=== PATIENT | female | born 1970 | race Caucasian/White ===

== ENCOUNTER 2022-06-12 07:30 | Day surgery (SDC) | payer OTHER, SELFPAY ==
[2022-06-12] VITALS (15 sets, daily range): BP systolic 105–154; BP diastolic 56–96; PULSE 62–84; RESP 10–20; TEMP 36.2–37.1; O2SAT 92–100; BMI 35.2
[2022-06-12] MEDS: Lactated Ringers 1,000 ML 100 ML IV (08:25)
--- NOTE | 2022-06-12 09:22 | ANES.PREOP_ITS ---
General Info Date of Service Date Performed: 06/12/22 Height: 5 ft 1 in Weight: 84.7 kg Body Mass Index (BMI): 35.2 Surgical Procedure: Operation Date: 06/12/22 10:10 Proposed Procedure Side Surgeon p Tonsillectomy & Possible Adenoidectomy Shai Muhammad MD Meds Allergies and Home Medications Allergies Allergy/AdvReac Type Severity Reaction Status Date / Time No Known Allergies Allergy Verified 06/12/22 08:04 Home Medication Medication Instructions Recorded benzonatate 200 mg capsule 200 mg PO BID PRN 02/16/22 omeprazole 20 mg capsule,delayed 20 mg PO DAILY 02/16/22 release Current Visit Medications: Current Medications Generic Name Dose Route Start Last Admin Trade Name Freq PRN Reason Stop Dose Admin Ringer's Solution 1,000 mls @ 100 mls/hr 06/12/22 06:00 06/12/22 08:25 IV 07/09/22 23:59 100 mls/hr INFUSION TERI Administration Cefazolin Sodium/Dextrose 2 gm in 50 mls @ 100 mls/hr 06/12/22 06:00 Ancef Duplex IVPB 06/12/22 16:00 PREOP TERI Tranexamic Acid 1,000 mg/ 60 mls @ 360 mls/hr 06/12/22 06:00 Sodium Chloride IVPB 06/12/22 16:00 DIRECTED TERI IV Miscellaneous Supplies 1 each 06/12/22 06:00 Iv Access IV 07/09/22 23:59 DIRECTED TERI Sodium Chloride 0 ml 06/12/22 06:00 Normal Saline Flush 10 Ml Syr IV 07/09/22 23:59 PRN PRN Sodium Chloride 0 ml 06/12/22 06:00 Normal Saline 10 Ml Vial IJ 07/09/22 23:59 DIRECTED PRN Sterile Water 0 ml 06/12/22 06:00 Water,Injection,Sterile 10 Ml Vial IJ 07/09/22 23:59 DIRECTED PRN PFSH Active Problems Active Problems: Problem Status Onset Code Chronic tonsillitis J35.01 Tonsillar hypertrophy J35.1 Cough in adult R05.9 GERD (gastroesophageal reflux disease) K21.9 Medical History Medical History Cough Fibroid tumor Pigmented villonodular synovitis of knee Left Surgical History Surgical History History of appendectomy History of bilateral breast reduction surgery History of History of cholecystectomy History of hysterectomy for fibroid tumor - partial History of left knee surgery Tobacco Smoking/Tobacco Use Status: Never Alcohol Alcohol Intake: current Alcohol intake frequency: holidays/special occasions only Substance Use Substance use: Never Substance use type: does not use Vital Signs and Lab Results Vital Signs Most Recent Vital Signs in EMR: Most Recent Vital Signs Temp Pulse Resp BP Pulse Ox 37.1 C 66 16 123/83 97 06/12/22 08:04 06/12/22 08:04 06/12/22 08:04 06/12/22 08:04 06/12/22 08:04 Lab Results Blood Type / Crossmatch: No Data to Display Complete Blood Count: No Data to Display Complete Metabolic Panel: No Data to Display Liver Function Panel: No Data to Display Coagulation Panel: No Data to Display Cardiac Panel: No Data to Display Arterial Blood Gas: No Data to Display Venous Blood Gas: No Data to Display Pancreas Panel: No Data to Display Thyroid Panel: No Data to Display Infectious Disease: No Data to Display Blood Cultures: No Data to Display Toxicology Panel: 2 No Data to Display Panel: No Data to Display Anesthesia Assessment and Plan Anesthesia History Personal History: PONV Family History: No Family History of Anesthesia Complications Exercise Tolerance Exercise Tolerance: Metabolic Equivalents>4 Pertinent Negatives Pertinent Negatives: No Symptoms of GERD (Oral medication taken this am, no symptoms currently), No Major Cardiovascular Symptoms or Complaints and No Major Pulmonary Symptoms or Complaints Cardiac & Pulmonary Exam Cardiac Exam: Normal S1/S2 Heart Sounds Pulmonary Exam: Clear Bilateral Breath Sounds Implantable Cardiac Device Does patient have a Pacemaker or an ICD?: No Airway Exam Known Difficult Airway: No Mallampati Class: 1 Mouth Opening: Normal (> 3cm) Thyromental Distance: Greater than 3 cm Neck Range of Motion: Full ROM Neck Circumference: Normal Teeth Condition: Normal Dentition ASA Classification ASA Score: ASA 2 Emergency Case?: No NPO Status NPO Status: NPO Clears >2 hours, Solids >8 hours Status Status: History of Hysterectomy Anesthesia Plan Resuscitation Status: Full Code Anesthesia Technique: General Anesthesia Airway Planned: Endotracheal Tube Monitors Used: Standard Monitors
[2022-06-12] MEDS: ceFAZolin 2 GM/50 ML BAG IVPB (09:52)
[2022-06-12] MEDS: Bupivacaine 0.5% Pres-Free W/EPI 10 ML VIAL (10:04)
--- NOTE | 2022-06-12 10:14 | TONSIL_PTH ---
PATIENT: Cleve Cummings LOC: [facility] U#:[id number] AGE/SX: 52/F ROOM: RE06/12/[address]: Shai Muhammad MD : 1970 BED: DIS: 06/12/2022 SPEC #: [id number] RECD: 06/12/22 12:54 STATUS: SOUT REQ #: [id number] JOSE: 06/12/22 10:[address]: Shai Muhammad DEPT: Surgical Specimen RECD BY: Aracelis Mc ENTERED: 06/12/22 12:55 SP TYPE: TONSIL OTHR DR: Lion Bowen Tissues: 1 - TONSIL AGE 17 & OVER 2 - TONSIL AGE 17 & OVER Procedures: GROSS AND MICRO LEVEL 3 Comments: [id number]
--- NOTE | 2022-06-12 10:28 | PDOC.DSDIS_ITS ---
Date of service: 06/12/22 Time of Service: 10:28 Discharge Plan Disposition Patient Disposition: HOME Condition: Good Discharge Details Reason For Visit: Tonsillectomy Attending Provider: Shai Muhammad Primary Care Provider: Lion Bowen [facility] and New Rx's Prescriptions: No Action omeprazole 20 mg capsule,delayed release(DR/EC) 20 mg PO DAILY benzonatate 200 mg capsule 200 mg PO BID PRN Discharge Instructions Additional Instructions: My cell phone number is [phone]. Please call with any questions or concerns. If you are unable to reach me and this is an emergency, please proceed to the emergency room Stand Alone Forms: ENT- T&A Instr. Sabina Referrals: Shai Muhammad MD [ [facility] STAFF PHYSICIAN] - (1 month, please call for appointment prior to patient's departure)
--- NOTE | 2022-06-12 10:29 | W.PM.OP ---
Date of service: 06/12/22 Time of Service: 10:30 Operative Note Operative Note DATE OF PROCEDURE: 06/12/22 PRE-OP DIAGNOSIS: Chronic tonsillitis POST-OP DIAGNOSIS: same PROCEDURE: Tonsillectomy SURGEON: Shai Muhammad ANESTHESIA TYPE: General LMA/ETT Refer to Anesthesia Record ESTIMATED BLOOD LOSS: 25 PATHOLOGY: other (Tonsils) COMPLICATIONS: None Patient was transported to: PACU Patient's condition: stable Indications: Patient with the above problems. Options were explained to the family regarding further management. She elected undergo the above procedure. Consent was filled out and signed prior to surgery. Risks of narcotics were reviewed in detail. H&P was reviewed. There have been no changes. Findings: 3+ tonsils with copious cryptic debris, adenoids atrophic, without any inflammation or debris, no Tornwaldt cyst apparent Procedure Description: After obtaining an adequate level of general endotracheal anesthesia, patient was prepped and draped in appropriate fashion and a Calin Min mouthgag carefully introduced into the oral cavity and opened to reveal a soft and hard palate which were examined revealing no evidence of an occult cleft palate. Adenoids were examined with the above findings. As such, the decision was made not to perform adenoidectomy. Each tonsil was injected in a submucosal plane around its edge using 0.5% Marcaine with 1-100,000 epinephrine. A 12 blade was then used to incise mucosa along the anterior, superior, and posterior edges of the tonsil. A Elisa elevator was used to disarticulate the tonsil from the superior tonsillar fossa and then a Mckeon blade used to strip the tonsil free from the tonsillar fossa down to the inferior pole at which point time a tonsillar snare was used to amputate the tonsil from the tonsillar fossa. Electrocautery suction tip catheter was then used to achieve relative hemostasis within the tonsillar bed. This was on a setting of 15. Once been accomplished bilaterally the Calin-Min mouthgag was relaxed and reopened revealing no further bleeding. Valsalva failed to induce any further bleeding. A Calin Min mouthgag was relaxed and removed and the patient was then awakened by anesthesia and taken the recovery room in stable condition. I was present throughout the entire case.
[2022-06-12] MEDS: fentaNYL 100 MCG/2 ML VIAL IVP ×4 (11:09→11:55)
--- NOTE | 2022-06-12 11:51 | W.ANESPOSTOP ---
Postoperative Evaluation Date, Time and Location Date Performed: 06/12/22 Time Performed: 11:51 Patient Location: PACU Vital Signs Most Recent Imported Vital Signs: Most Recent Vital Signs Temp Pulse Resp BP Pulse Ox 36.6 C 66 11 L 154/74 H 100 06/12/22 11:30 06/12/22 11:30 06/12/22 11:30 06/12/22 11:30 06/12/22 11:30 Pain Score Most Recent Pain Score: Most Recent Pain Score Pain Level 4 06/12/22 11:52 Assessment Mental Status: Awake (Alert & Oriented to Patient Baseline) Airway and Respiratory Function: Patent airway with normal (patient baseline) respiratory exam Cardiovascular Function: Hemodynamically Stable Hydration Status: Adequately Hydrated Nausea & Vomiting: No Nausea or Vomiting Pain: Pain is tolerable per patient Peripheral Nerve Block: Patient did not receive a nerve block
[2022-06-12] MEDS: Droperidol 5 MG/2 ML VIAL 0.625 MG IVP (13:25)
== END 2022-06-12 14:14 | disposition home or self-care (01) ==
PROVIDERS: PCP Family Medicine; Visit Provider Otolaryngology
PROC: (CPT 42826; principal; 2022-06-12 10:00)
DX: J35.01 Chronic tonsillitis (principal); K21.9 Gastro-esophageal reflux disease without esophagitis; R05.9 Cough, unspecified
CPT/HCPCS: 42826; 88304; J0131; J0690; J1100; J1790; J2250; J2405; J2704; J3010

== ENCOUNTER → 2023-12-05 03:02 | Outpatient (CLI) | payer OTHER, SELFPAY ==
--- NOTE | 2023-12-05 08:00 | DI.RAD_ITS ---
Exam(s) RF MODIFIED SPEECH BA SWALLOW TECHNIQUE: Modified barium swallow was performed in conjunction with speech pathology. CONTRAST MATERIAL: Multiple consistencies of oral barium contrast were administered. COMPARISON: No exams were available for comparison FINDINGS: There is no evidence of aspiration or penetration with any consistency. No significant residue in the vallecula or piriform sinuses. Barium tablet passed into the stomach without delay. Speech pathology report to follow. IMPRESSION: No evidence of aspiration or penetration. RADIATION DOSE DELIVERED: dave Downey=10.5 mGy
--- NOTE | 2023-12-05 14:26 | ST.MBS ---
Date of Service Date of service: 12/05/23 Time of Service: 14:26 Modified Barium Swallow Study Findings: INSTRUMENTAL SWALLOW EVALUATION: Modified Barium Swallow Study (MBSS/VFSS) Speech Language Pathology Report Patient referred for VFSE/MBSS from Dr. Muhammad given globus sensation and reported stasis. HPI & Patient report of function: Patient is a 53 y/o F with Junior's esophagus, severe reflux/LPR with poor tolerance of PPI's, who was referred by ENT upon evaluation given globus sensation and sensation of pharyngeal residue without sensation of esophageal impaction. No prior MBSS completed, no history of INTELLECTUAL PROPERTY LEGAL ASSISTANT services. This date, patient reports globus sensation outside of meals and difficulty swallowing a variety of textures including her own saliva - localizes sensation of stasis to hypopharynx. She reports occasional s/sx aspiration coughing with certain foods such as watermelon. She frequently wakes in the night with sensation of aspiration. PFSH All Active Problems (Updated 10/30/23 @ 06:24 by Shai Muhammad MD) Globus sensation (Acute) Barretts esophagus (Acute) Pharyngoesophageal dysphagia (Acute) Chronic tonsillitis (Acute) Tonsillar hypertrophy (Acute) Cough in adult (Acute) GERD (gastroesophageal reflux disease) (Chronic) Medical History Pain in left arm Migraine Lesion of ulnar nerve Knee joint effusion Urge incontinence of urine Subluxation of patellofemoral joint Obesity Menopause Left knee pain Inflammatory dermatosis Fibroid tumor Pigmented villonodular synovitis of knee - Left Cough Surgical History Hx of eye surgery Hx of colonoscopy History of esophagogastroduodenoscopy (EGD) Hx of tonsillectomy 06/12/2022History of hysterectomy for fibroid tumor - partialHistory of cholecystectomy History of left knee surgery History of bilateral breast reduction surgery History of History of appendectomy IMPRESSIONS: Swallow safety is preserved; swallow efficiency is preserved. Overall swallow function appears safe/WFL throughout the oral, pharyngeal, and pharyngo-esophageal phase. No penetration or aspiration was observed. Pharyngeal residue was only trace (normal finding) and limited only to valleculae. On esophageal survey there was no significant retention and no retrograde flow was observed. Patient appears to be at low risk for potential aspiration PNA due to prandial aspiration and low risk for malnutrition, low risk for dehydration. Pulmonary risk is present from reflux aspiration based on patient report. Diet modification is not indicated; non-oral nutrition is not indicated. Specialist referrals:? GI ? RECOMMENDATIONS: Diet Texture Recommendation:? IDDSI LEVEL SOLIDS 7-Regular Solids LIQUIDS 0-Thin Liquids MEDICATIONS Whole with 0-Thin Liquids Risk Management Strategies:? Behavioral reflux precautions, including upright position during + 90 mins after meals. Smaller/more frequent meals throughout the day Sleep on an incline Avoid eating meals or drinking large volumes liquids 2-3 hrs before bedtime. Control risk factors for aspiration pneumonia via (a) thorough oral hygiene & (b) maintaining physical mobility as tolerated PLAN: No further INTELLECTUAL PROPERTY LEGAL ASSISTANT services are indicated at this time. Continue to address reflux management with medical teams. ----- OBJECTIVE Videofluoroscopic Swallow Evaluation (VFSE/MBSS) was conducted in the lateral[ and [id number]] projection by Speech-Language Pathologist, in collaboration with Radiologist, to evaluate oropharyngeal swallow function. Anatomic view under fluoroscopy: Noting cervical hardware, patient endorses ACDF ~5 years ago. PO Barium Contrast Trials Oral barium water-soluble contrast was administered as follows: IDDSI Level 0 Varibar thin liquid (40% w/v) IDDSI Level 2 Varibar nectar thick/mildly thick liquid (40% w/v) IDDSI Level 4 Varibar pudding/pureed/extremely thick (40% w/v) IDDSI Level 7 Regular Solid: 1/2 jen cracker coated in 3 mL Varibar pudding 13 mm barium tablet taken with (thin) water. PHYSIOLOGIC FINDINGS Oral Phase 1 Lip Closure: 0-No labial escape 2 Tongue Control: 0- Cohesive bolus between tongue to palatal seal 3 Bolus Preparation/Mastication: 0- Timely and efficient chewing/mashing 4 Bolus Transport/Lingual Motion: 0- Brisk tongue motion 5 Oral residue: 1- Trace residue lining oral structures Location: tongue 6 Initiation of pharyngeal swallow:? 2- Bolus head at posterior laryngeal surface of epiglottis Pharyngeal Phase 7 Velar Elevation: 0- No bolus between soft palate and pharyngeal wall 8 Laryngeal Elevation:? 0- Complete superior movement of thyroid cartilage with complete approximation of arytenoids to epiglottic petiole 9 Anterior Hyoid Excursion: 0- Complete anterior movement 10 Epiglottic Movement:? 0- Complete inversion 11 Laryngeal Vestibule Closure: 0- Complete; no air/contrast in laryngeal vestibule Penetration not observed 12 Pharyngeal Stripping Wave:? 0- Present; complete 13 Pharyngeal Contraction: not observed 14 PES/UES Opening:? 0- Complete distension and complete duration; no obstruction of flow 15 Tongue Base Retraction: 1- Trace column of contrast between tongue base and posterior pharyngeal wall 16 Pharyngeal residue:? 1- Trace residue within or on pharyngeal structures Location: Valleculae Paige Pharyngeal Residue Severity Rating Scale (YPRS) (Sharon, et al, 2015) Vallecula Residue Severity I None 0% No residue II Trace 1-5% Trace coating of the mucosa III Mild 5-25% Epiglottic ligament visible IV Moderate 25-50% Epiglottic ligament covered V Severe >50% Filled to epiglottic rim] Pyriform Sinus Residue Severity I None 0% No residue II Trace 1-5% Trace coating of the mucosa III Mild 5-25% Up wall to quarter full IV Moderate 25-50% Up wall to half full V Severe >50% Filled to aryepiglottic fold Esophageal Phase 17 Esophageal Clearance Upright Position: 0-Complete clearance; esophageal coating NOTE: This study was performed for interpretation only of the oropharyngeal and pharyngoesophageal domains of swallowing. It is not intended to diagnose any other radiologic abnormalities or substitute for a formal esophagram study. Overall 8-Point Penetration-Aspiration Scale (PAS) (Donk, et al, 1996) 1 - No material enters the airway. 2 - Material enters the airway, remains above the vocal folds, and is ejected? from the airway. 3 - Material enters the airway, remains above the vocal folds, and is not? ejected from the airway. 4 - Material enters the airway, contacts the vocal folds, and is ejected from the? airway. 5 - Material enters the airway, contacts the vocal folds, and is not ejected from? the airway. 6 - Material enters the airway, passes below the vocal folds, and is ejected into? the larynx or out of the airway. 7 - Material enters the airway, passes below the vocal folds, and is not ejected? from the trachea despite effort. 8 - Material enters the airway, passes below the vocal folds, and no effort is? made to eject. Clinical Indicator(s) of Prandial/Postprandial Aspiration: N/A Thank you for allowing us to take part in this patient's care. Please feel free to contact the [facility] Speech Language Pathology Department with any questions/concerns.
[2023-12-05] MEDS: Barium Sulfate 81% w/w for Oral Suspension 148 GM BTL PO (15:06)
[2023-12-05] MEDS: Barium Sulfate 40% W/V 240 ML BTL PO (15:07)
[2023-12-05] MEDS: Barium Sulfate 700 MG TAB PO (15:07)
[2023-12-05] MEDS: Barium Sulfate Oral Paste 40% W/V 230 ML TUBE PO (15:08)
== END ==
PROVIDERS: PCP Family Medicine; Visit Provider Otolaryngology
DX: R13.14 Dysphagia, pharyngoesophageal phase (principal); K22.70 Barrett's esophagus without dysplasia; K21.9 Gastro-esophageal reflux disease without esophagitis
CPT/HCPCS: 92526; 74221